=== PATIENT | male | born 1965 | race Caucasian/White ===

== ENCOUNTER 2023-07-29 08:54 | Emergency (ER) | payer OTHER, SELFPAY ==
[2023-07-29 09:01] VITALS: BP 160/104
--- NOTE | 2023-07-29 09:20 | ED.GENMED ---
History of Present Illness
General
Chief Complaint: Abdominal Pain
Time Seen by Provider: 07/29/23 09:20
Travel History
Have you had any contact with someone who has COVID-19?: No
Do you have any symptoms of coronavirus? Fever > 100 degrees, chills, cough, shortness of breath, sore throat, loss of taste or smell, muscle aches, or headache?: No
History of Present Illness
History of Present Illness:
HPI: 1 week ago, the patient had onset of right upper quadrant pain for a few days. He then had a period of a few days where he was pain-free. Yesterday evening into today he had ongoing pain in the right upper quadrant with no vomiting or nausea
that kept him up all night. He still has his gallbladder. He states he had some outpatient blood work last week due to upcoming hip surgery that showed mild leukocytosis. He had some diarrhea with symptoms started a week ago but no longer has
diarrhea.
EXAM:
GENERAL: Well appearing in no distress
HEENT: Moist oral mucosa
CARDIOVASCULAR: No murmurs, normal heart rate and rhythm, No chest wall tenderness
PULMONARY: No respiratory distress, breath sounds are clear and equal
ABDOMEN: Soft with no peritoneal signs, no tenderness specifically there is no significant right upper quadrant tenderness
NEUROLOGIC: Excellent strength all extremities, no coordination deficits
PSYCHIATRIC: Appropriate mental status, normal insight and judgement
EXTREMITIES: Nontender, no edema, moves all extremities equally
SKIN: No rash, no lesions
ED COURSE:
9:30 AM: I initially evaluated patient
NUMBER AND COMPLEXITY OF PROBLEMS ADDRESSED AT THE ENCOUNTER
� Chronic conditions affecting care: Hyperlipidemia
� Acute Exacerbation and/or Progression of Chronic Illness: This is an acute problem
� Differential Diagnosis includes: Biliary colic, cholecystitis, GERD, pancreatitis, doubt SBO as patient has not had any prior surgery in the abdomen
AMOUNT AND/OR COMPLEXITY OF DATA TO BE REVIEWED AND ANALYZED
� I performed an independent evaluation of and my interpretation is:
EKG:
CT:
X-rays:
Laboratory Studies: White blood cell count is normal at 9.5, hemoglobin normal, there is minimal ALT and lipase elevation
Other: Ultrasound imaging unremarkable with no sign of gallstones
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
� Clinical information was obtained by an independent historian: None needed
� Prescriptions/Medications Considered but not given:
� Further testing considered but not performed: I offered EKG however the patient declines saying that he has 1 coming up soon. The patient never had any chest pain.
RISK OF COMPLICATIONS AND/OR MORBIDITY OR MORTALITY OF PATIENT MANAGEMENT
� Social determinants of health affecting care: Lives at home
� Discussion with other providers: Notified GI bowling or skating front desk clerk to arrange close follow-up.
� Escalation of care including admission/observation vs risk of discharge considered: Intermittently severe right upper quadrant pain but currently patient appears fairly comfortable. Blood work is relatively unremarkable.
Regarding slight lipase elevation, I did ask patient about alcohol use and he states he does not drink alcohol on a daily basis. He has essentially stopped alcohol in anticipation of upcoming surgery. I recommended PPI for the next 2 weeks.
Phy Exam
Physical Exam
Physical Exam:
See HPI
Course
Orders/Labs/Results
Orders:
Orders
07/29/23 09:30
0.9% Sodium Chloride 1000 ml [Nss] 1,000 ml IV BOLUS
US Abdomen Complete/Upper Urgent
Comment:
Reason For Exam: ruq pain intermittent x 1wk
07/29/23 09:49
Complete Blood Count/With Diff Urgent
Comprehensive Metabolic Panel Urgent
Direct Bilirubin Urgent
Lipase Urgent
07/29/23 11:08
Ketorolac [Toradol] 15 mg IV NOW STA
Abnormal Lab Results
07/29/23
09:49
MCH 31.9 H pg
(27.0-31.0)
Absolute Neuts (auto) 6.9 H 10^3/uL
(1.4-6.5)
Absolute Monos (auto) 0.7 H 10^3/uL
(0.1-0.6)
Lymphocytes % 16.7 L %
(20.5-51.1)
Glucose 113 H mg/dl
(70-99)
ALT 64 H U/L
(0-50)
Albumin 5.1 H g/dl
(3.5-5.0)
Lipase 352 H U/L
(23-300)
07/29/23 09:49
07/29/23 09:49
Vital Signs
Initial and Last Documented VS:
Initial Vital Signs
Temp Pulse Resp BP Pulse Ox
98 F 85 20 160/104 97
07/29/23 09:01 07/29/23 09:01 07/29/23 09:01 07/29/23 09:01 07/29/23 09:01
Last Documented Vital Signs
Temp Pulse Resp BP Pulse Ox
98 F 85 20 160/104 97
07/29/23 09:01 07/29/23 09:01 07/29/23 09:01 07/29/23 09:01 07/29/23 09:01
*Critical Care Note
Total Time (30-74mins, 75-104mins- exclusive of procedures): Not Applicable
ED Attending Note
-
Portions of this chart may have been created with voice recognition software.� Occasional wrong word or��sound alike� substitutions may have occurred due to the inherent limitations of voice recognition software.
Discharge Plan
Departure
Patient Disposition: Home (Routine Discharge)
Date of Disposition: 07/29/23
Time of Disposition: 12:22
Patient with high blood pressure during this ER visit?: Yes
Discharge Problem:
Abdominal pain
Instructions: Abdominal Pain
Referrals:
Leta Combs MD [Active] - Follow up in 2-3 days
Zhou Garcia MD [Family Provider] -
Activity Restrictions/Additional Instructions:
Consider trying a 2-week course of [id number] omeprazole. I did notify the GI office and they should be calling you for follow-up.
Interventions
Interventions:
*Risk Screen - Suicide Last Done: 07/29/23 09:01
*General Assessment Last Done: 07/29/23 09:01
*Neglect/Abuse Screening Last Done: 07/29/23 09:01
WC-Iajrsk-Wmovbwfehk Assessment Last Done: 07/29/23 10:39
[2023-07-29] MEDS: NSS 1000 IV (09:48)
[2023-07-29 09:55] LABS: % Basophils 0.5 % (0-2); % Immature Granulocytes 0.4 % (0-0.5); % Lymphocytes 16.7 % (20.5-51.1); % Monocytes 7.8 % (1.7-9.3); % Neutrophils 72.6 % (42.2-75.2); Absolute Basophils 0.1 10^3/uL (0-0.2); Absolute Eosinophils 0.2 10^3/uL (0-0.7); Absolute Lymphocytes 1.6 10^3/uL (1.2-3.4); Absolute Monocytes 0.7 10^3/uL (0.1-0.6); Absolute Neutrophils 6.9 10^3/uL (1.4-6.5); Hematocrit 45.4 % (39.0-52.0); Hemoglobin 15.9 g/dL (13.0-18.0); Mean Corpuscular Hgb 31.9 pg (27.0-31.0); Mean Corpuscular Volume 91.2 fL (80.0-94.0); Mean Platelet Volume 9.6 fL (7.4-10.4); Nucleated Red Blood Cells % 0 % (-); Platelet Count 324 10^3/uL (130-400); Red Blood Cell Count 4.98 10^6/uL (4.70-6.10); White Blood Cell Count 9.5 10^3/uL (4.8-10.8)
[2023-07-29 10:16] LABS: ALT (SGPT) 64 U/L (0-50); AST (SGOT) 35 U/L (17-59); Albumin 5.1 g/dl (3.5-5.0); Alkaline Phosphatase 88 U/L (38-126); Blood Urea Nitrogen 19 mg/dl (9-20); Calcium 10.2 mg/dl (8.4-10.2); Carbon Dioxide 28 mmol/L (22-30); Chloride 101 mmol/L (98-107); Direct Bilirubin 0.1 mg/dl (0.0-0.4); Glucose 113 mg/dl (70-99); Lipase 352 U/L (23-300); Sodium 137 mmol/L (135-145); Total Bilirubin 0.7 mg/dl (0.2-1.3); Total Protein 7.9 g/dl (6.3-8.2); eGFR > 60.00
[2023-07-29 10:41] VITALS: BMI 23.7
[2023-07-29] MEDS: TORADOL 15 MG IV (11:20)
[2023-07-29 12:53] VITALS: BP 134/85
== END 2023-07-29 12:55 | disposition home or self-care (01) ==
LOC: EMR 08:54
PROVIDERS: EMERGENCY PHYSICIAN Emergency Medicine; FAMILY PHYSICIAN Family Medicine
DX: R10.11 Right upper quadrant pain (principal); E78.00 Pure hypercholesterolemia, unspecified
CPT/HCPCS: 99284; 96374; 96361; 76700; 80053; 82248; 83690; 85025

== ENCOUNTER → 2023-08-04 08:48 | Outpatient (REF) | payer OTHER, SELFPAY ==
[2023-08-04 09:13] LABS: % Basophils 0.4 % (0-2); % Eosinophils 3.6 % (0-6); % Immature Granulocytes 0.3 % (0-0.5); % Lymphocytes 14.6 % (20.5-51.1); % Monocytes 8.1 % (1.7-9.3); Absolute Eosinophils 0.3 10^3/uL (0-0.7); Absolute Lymphocytes 1.3 10^3/uL (1.2-3.4); Absolute Monocytes 0.7 10^3/uL (0.1-0.6); Absolute Neutrophils 6.7 10^3/uL (1.4-6.5); Hematocrit 42.2 % (39.0-52.0); Hemoglobin 14.4 g/dL (13.0-18.0); Mean Corp Hgb Conc. 34.1 g/dL (33.0-37.0); Mean Corpuscular Volume 93.8 fL (80.0-94.0); Mean Platelet Volume 9.4 fL (7.4-10.4); Nucleated Red Blood Cells % 0 % (-); Platelet Count 311 10^3/uL (130-400); Red Cell Dist. Width 11.9 % (11.5-14.5); White Blood Cell Count 9.2 10^3/uL (4.8-10.8)
[2023-08-04 10:04] LABS: Blood Urea Nitrogen 16 mg/dl (9-20); Carbon Dioxide 29 mmol/L (22-30); Chloride 99 mmol/L (98-107); Glucose 121 mg/dl (70-99); Potassium 4.4 mmol/L (3.5-5.1); Sodium 139 mmol/L (135-145); eGFR > 60.00
== END ==
LOC: REG 08:48
PROVIDERS: ATTENDING PHYSICIAN Orthopaedic Surgery; FAMILY PHYSICIAN Family Medicine
DX: Z01.818 Encounter for other preprocedural examination (principal)
CPT/HCPCS: 80048; 85025; 93005